=== PATIENT | male | born 1945 | race Caucasian/White ===

== ENCOUNTER 2017-06-24 13:25 | Emergency (ER) | payer MEDICARE ==
--- NOTE | 2017-06-24 14:56 | RAD ---
INDICATION: LEFT wrist pain post fall. COMPARISON: No relevant prior exams available on the [facility] PACS for comparison. TECHNIQUE: AP, lateral, and oblique views LEFT wrist. REPORT: Bone density appears decreased throughout. Subtle cortical buckle fracture at the distal metaphysis of the radius with disproportionate dorsal impaction with resulting loss of the normal volar tilt of the distal radioarticular surface. Probable intra-articular extension without significant articular surface discontinuity. Negative for additional fracture or articular malalignment. Soft tissue swelling about the wrist and visualized hand. IMPRESSION: Mildly dorsally impacted distal radial fracture with probable intra-articular extension without significant articular surface discontinuity.
[2017-06-24 16:57] VITALS: BP 116/79
--- NOTE | 2017-06-24 17:46 | ED ---
Upper Extremity Pain - HPI Summary HPI Summary: Patient is a 72-year-old male who presents to the emergency department for a left wrist injury that occurred yesterday morning. Patient has a history of Parkinson's disease and states he was moving his a wheelchair when he lost his balance and fell, landed onto his left hand. He presents to the ER today because wrist became swollen and bruised. He denies head injury or any other complaints at this time. Symptoms are mild in severity. Using and touching left wrist makes symptoms worse. Rest makes symptoms better. Is not anticoagulated. - History of Current Complaint Chief Complaint: EDExtremityUpper Stated Complaint: LT WRIST INJURY Time Seen by Provider: 06/24/17 13:32 Hx Obtained From: Patient, Family/News Department Intern - Allergies/Home Medications Allergies/Adverse Reactions: Allergies Allergy/AdvReac Type Severity Reaction Status Date / Time codeine Allergy Rash Verified 06/24/17 13:30 PMH/Surg Hx/FS Hx/Imm Hx Previously Healthy: Yes Cardiovascular History: Reports: Hx Hypertension Neurological History: Reports: Other Neuro Impairments/Disorders - PARKINSONS DISEASE - Surgical History Surgery Procedure, Year, and Place: deep brain stimulation implant Dec 2010 Infectious Disease History: No Infectious Disease History: Denies: Traveled Outside the [place] in Last 30 Days - Social History Occupation: Retired Lives: With Family Alcohol Use: Rare Substance Use Type: Reports: None Smoking Status (MU): Former Smoker Type: Pipe Have You Smoked in the Last Year: No Review of Systems Positive: Other - left wrist pain and bruising All Other Systems Reviewed And Are Negative: Yes Physical Exam Triage Information Reviewed: Yes Vital Signs On Initial Exam: Initial Vitals Temp Pulse Resp BP Pulse Ox 98.2 F 87 19 119/87 96 06/24/17 13:26 06/24/17 13:26 06/24/17 13:26 06/24/17 13:26 06/24/17 13:26 Vital Signs Reviewed: Yes Appearance: Positive: Well-Appearing - Patient sitting on bed in no acute distress. present. Skin: Positive: Warm, Dry Musculoskeletal: Positive: Other - Ecchymosis and mild edema noted to the left distal forearm and hand. Good palpable pedal pulse. Brisk capillary refill. No wounds. No proximal elbow or shoulder pain. Neurological: Positive: Normal, CN Intact II-III Psychiatric: Positive: Normal Procedures - Splinting Hand-Made Type: orthoglass Splint: sugar-tong Pre-Proc Neuro Vasc Exam: normal Post-Proc Neuro Vasc Exam: normal Diagnostics - Vital Signs Vital Signs Temp Pulse Resp BP Pulse Ox 06/24/17 16:56 98.0 F 86 14 116/79 92 06/24/17 16:07 86 18 120/85 92 06/24/17 16:00 84 18 95 06/24/17 15:56 86 19 115/88 94 06/24/17 15:26 107 18 111/84 97 06/24/17 15:00 83 16 97 06/24/17 14:26 83 17 101/82 94 06/24/17 14:25 76 24 95 06/24/17 13:56 87 19 116/87 97 06/24/17 13:26 98.2 F 87 19 119/87 96 - Laboratory Lab Statement: Any lab studies that have been ordered have been reviewed, and results considered in the medical decision making process. Course/Dx - Course Course Of Treatment: Patient presenting for an isolated left wrist injury. X- rays show a mildly impacted intra-articular distal radial fracture, reading per radiology. Wrist was splinted. Patient's is comfortable taking him home and caring for him at this time. They're to call the orthopedic clinic on Monday for an appointment. Keep splint in place. Tylenol for pain as directed. Ice and elevate. To return to the ER symptoms change or worsen. - Diagnoses Differential Diagnosis/HQI/PQRI: Positive: Fracture (Closed), Hematoma, Strain, Sprain Provider Diagnoses: Wrist fracture Discharge - Sign-Out/Discharge Documenting (check all that apply): Discharge/Admit/Transfer - Discharge Plan Condition: Good Disposition: HOME Patient Education Materials: Wrist Fracture in Adults (ED) Referrals: Ruth Peralta MD [Primary Care Provider] - Giorgio Bartholomew MD [Medical Doctor] - Additional Instructions: Call Dr. Bartholomew' office on Monday to schedule an appointment Keep splint in place Ice and elevate Tylenol for pain as directed Return to ER if symptoms change or worsen - Billing Disposition and Condition Condition: GOOD Disposition: HOME
== END 2017-06-24 16:56 | disposition home or self-care (01) ==
LOC: ED 13:25
DX: S52.502A Unspecified fracture of the lower end of left radius, initial encounter for closed fracture (principal); W18.30XA Fall on same level, unspecified, initial encounter; Y93.89 Activity, other specified; Y92.9 Unspecified place or not applicable; G20 Parkinson's disease; I10 Essential (primary) hypertension; Z88.5 Allergy status to narcotic agent; Z87.891 Personal history of nicotine dependence
CPT/HCPCS: 99282

== ENCOUNTER 2018-03-01 09:31 | Emergency (ER) | payer MEDICARE ==
--- NOTE | 2018-03-01 10:23 | ED ---
Adult Trauma - HPI Summary HPI Summary: A 73 y/o male brought in by [facility] presents to [facility] with a chief complaint of being referred from his Primary Care Provider, Dr. Ruth Peralta with [facility] in [place], for a Hx of frequent falls and a most recent fall the morning of 03/01/18. Hx of Parkinson's. Dr. Peralta referred the patient to the ED for investigation of possible rehab placement. Per triage, he rates his pain as 5/10. He had an appointment with Dr. Peralta at 11:30 on 03/01/18. The patient claims that this morning he remembers standing up and trying to pull up his underwear but doesn't remember anything else around the fall. He notes that he usually uses his scooter around his house and reports needing help to walk. He c /o leg swelling. He denies fever, CP, cough or flu like symptoms. However, he does c/o constant SOB. FHx Alzheimer's. SHx cholecystectomy. The patient states that he does not want to go to rehab. He is a former smoker who quit 40 years ago. He denies a Hx of substance abuse. He admits to EtOH use rarely. Takes Sinemit 1.5 in morning. In the afternoon, evening and night takes 1. Vital signs while in room: HR 77bpm, BP 142/89, O2 Sat 95 - History of Current Complaint Chief Complaint: EDGeneral Stated Complaint: FELL Time Seen by Provider: 03/01/18 09:52 Hx Obtained From: Patient, EMS Mechanism of Injury: Fall Onset/Duration: Started Weeks Ago, Still Present Onset of Pain: Immediate, Prior to Arrival Onset Severity: Moderate Current Severity: Moderate Pain Intensity: 5 Pain Scale Used: 0-10 Numeric Aggravating Factor(s): Nothing Alleviating Factor(s): Nothing Associated Signs & Symptoms: Positive: SOB. Negative: Chest Pain, Cough, Fever - Allergy/Home Medications Allergies/Adverse Reactions: Allergies Allergy/AdvReac Type Severity Reaction Status Date / Time codeine Allergy Rash Verified 03/01/18 10:26 Home Medications: Home Medications Carbidopa/Levodopa [Carbidopa-Levodopa 25-100 Tab] 1 tab PO BEDTIME 03/01/18 [ History Confirmed 03/01/18] Carbidopa/Levodopa [Carbidopa-Levodopa 25-100 Tab] 1 tab PO QPM 03/01/18 [ History Confirmed 03/01/18] Carbidopa/Levodopa [Carbidopa-Levodopa 25-100 Tab] 1.5 tab PO DAILY 03/01/18 [ History Confirmed 03/01/18] Insulin Detemir [Levemir Flextouch] 30 unit SC DAILY 03/01/18 [History Confirmed 03/01/18] Losartan Potassium 25 mg PO DAILY 03/01/18 [History Confirmed 03/01/18] PMH/Surg Hx/FS Hx/Imm Hx Cardiovascular History: Reports: Hx Hypertension Neurological History: Reports: Other Neuro Impairments/Disorders - PARKINSONS DISEASE - Surgical History Surgery Procedure, Year, and Place: deep brain stimulation implant Dec 2010 Infectious Disease History: No Infectious Disease History: Denies: Traveled Outside the [place] in Last 30 Days - Family History Known Family History: Positive: Other - Alzheimer's - Social History Occupation: Retired Lives: With Family Alcohol Use: Rare Substance Use Type: Reports: None Smoking Status (MU): Former Smoker Type: Pipe Have You Smoked in the Last Year: No Review of Systems Negative: Fever ENT: Negative - flu-like symptoms Negative: Chest Pain Positive: Shortness Of Breath. Negative: Cough Positive: Edema - legs All Other Systems Reviewed And Are Negative: Yes Physical Exam - Summary Physical Exam Summary: Appearance: Well-appearing, moderate pain distress, well-nourished Skin: Warm, color reflects adequate perfusion, dry, fungal toenails bilaterally Head: Normal Head/Face inspection, atraumatic Eyes: Conjunctiva clear ENT: Normal inspection Neck: Supple, no nodes, no JVD Respiratory: Lungs clear, normal breath sounds, no respiratory distress Cardio: RRR, No murmur, pulses normal, brisk capillary refill Abdomen: Soft, nontender, Purple ecchymosis 3cm right lower abd, healed midline scar abdomen Bowel sounds: Present Musculoskeletal: Strength Intact/ROM intact, no calf tenderness, 2+ edema bilaterally, Brawny changes bilateral legs, redness left leg greater than right Psychological: Normal Neuro: Alert, muscle tone normal, no focal deficit, rolling tremor on right, slight slurred speech but understandable, able to lift bilateral legs against gravity without pain. Triage Information Reviewed: Yes Vital Signs On Initial Exam: Initial Vitals Temp Pulse Resp BP Pulse Ox 97.4 F 73 17 142/89 97 03/01/18 09:38 03/01/18 09:38 03/01/18 09:38 03/01/18 09:38 03/01/18 09:38 Vital Signs Reviewed: Yes - [place] Coma Scale Best Eye Response: 4 - Spontaneous Best Motor Response: 6 - Obeys Commands Best Verbal Response: 5 - Oriented Coma Scale Total: 15 Diagnostics - Vital Signs Vital Signs Temp Pulse Resp BP Pulse Ox 03/01/18 09:38 97.4 F 73 17 142/89 97 - Laboratory Result Diagrams: 03/01/18 10:23 03/01/18 10:23 Lab Statement: Any lab studies that have been ordered have been reviewed, and results considered in the medical decision making process. - Radiology CXR Radiology Interpretation Completed By: Radiologist Summary of Radiographic Findings: No evidence for intrathoracic disease. ED provider has reviewed this imaging report. - CT Brain CT Interpretation Completed By: Radiologist Summary of CT Findings: Brain stimulator leads in place. No definite intracranial mass or hemorrhage. is noted. ED provider has reviewed this imaging report. - EKG 10:39 Cardiac Rate: NL - 76 bpm EKG Rhythm: Sinus Rhythm ST Segment: Non-Specific Ectopy: None EKG Comparison: Other - not consistent with 11/08/13. Summary of EKG Findings: NSR at 76 bpm, 1st degree AV block (222), prolonged IVCT in LBBB, nl QTc, left axis (-51), not consistent with 11/08/13. Re-Evaluation - Re-Evaluation First Eval Re-Evaluation Time: 12:38 Change: Unchanged Comment: Takes Sinemit 1.5 in morning. In the afternoon, evening and night takes 1. Second Eval Re-Evaluation Time: 13:08 Change: Unchanged Comment: Per patient has fallen 2 times in 3 days. Also has prior falls in other months. Has also been falling in previous months. Brain stimulator was in [place] in 2010. Third Eval Re-Evaluation Time: 15:15 Change: Improved Comment: Pt and agreeable to discharge. Pt feels well. Bactrim DS x1 given. Pt will return home by wheelchair van. Adult Trauma Course/Dx - Course Course Of Treatment: A 73 y/o male brought in by [facility] presents to [facility] with a chief complaint of being referred from his Primary Care Provider, Dr. Ruth Peralta, for a Hx of frequent falls and a most recent fall the morning of 03/01/18. Hx of Parkinson's. The physical exam revealed 2+ edema bilaterally, brawny changes bilateral legs, redness left leg greater than right and a rolling tremor on right, slight slurred speech but understandable and that the patient is able to lift bilateral legs against gravity without pain. CXR and brain CT were negative. EKG at 10:39 showed NSR at 76 bpm. Sinemit 25/100 administered at 12:39. Case discussed with Zakiya from manager social work. The patient will be discharged with a prescription for Bactrim and strict return precautrions were given. The patient is agreeable with this plan. - Diagnoses Provider Diagnoses: Frequent falls, UTI (urinary tract infection), Parkinsons Discharge - Sign-Out/Discharge Documenting (check all that apply): Patient Departure - DC - Discharge Plan Condition: Stable Disposition: HOME Prescriptions: Sulfamethox/Trimethoprim DS* [Bactrim DS 800/160 TAB*] 1 tab PO BID #10 tab Meds/Orders/Equipment: Home Care: Skilled Needs Location: None Selected Patient Education Materials: Urinary Tract Infection in Men (ED), Fall Prevention for Older Adults (ED) Referrals: Referral Center, Primary Care Physician [Other] (Please call number with your name, phone number, special needs, request for physician and insurance to find a new primary care physician in [facility].) [facility] [Outside] (Referral made for hospital bed with railings and trapeze, bariatric rollator, and marlene.) [facility] [place] [Outside] (Referral made for senior living, physical therapy and PULMONOLOGY TECHNICIAN.) Ruth Peralta MD [Medical Doctor] - 2 Days Additional Instructions: We have helped arrange manager social work for you. You were given your first dose of Bactrim as treatment for a urinary tract infection at 3:15pm today in the ER. You may take another dose tonight before bed, and then continue this medication for 5 days as directed. You were also given one of your carbidopa/levodopa pills this afternoon. Return to the ER if you have any new or worsening symptoms. - Attestation Statements Document Initiated by Scribe: Yes Documenting Scribe: Amari Foster Provider For Whom Scribe is Documenting (Include Credential): MD Vidhi Salasibe Attestation: Amari Azevedo, scribed for Dr. Mai Dawson MD on 03/01/18 at 1532. Consult Consult: At 13:38 discussed case with Zakiya from manager social work, who will come to the ED. At 15:00 discussed case with Zakiya from manager social work in the ED. We filled out the proper paperwork for the patient to be discharged and continue to work with manager social work.
[2018-03-01 10:30] LABS: ABS Basophils 0 10^3/ul (0-0.2); ABS Eosinophils 0.1 10^3/ul (0-0.6); ABS Lymphocytes 1.1 10^3/ul (1.0-4.8); ABS Monocytes 0.4 10^3/ul (0-0.8); ABS Neutrophils 3.5 10^3/ul (1.5-7.7); ABS Nucleated RBC 0 10^3/ul; Eosinophil % 2.8 %; Hematocrit 41 % (42-52); Hemoglobin 13.7 g/dl (14.0-18.0); Lymphocyte % 21.2 %; Mean Corpuscular HGB Conc 34 g/dl (31-36); Mean Corpuscular Hemoglobin 31 pg (27-31); Mean Corpuscular Volume 91 fL (80-94); Mean Platelet Volume 7.5 fL (7.4-10.4); Nucleated Red Blood Cells % 0; Platelet Count 139 10^3/ul (150-450); Red Blood Count 4.49 10^6/ul (4.00-5.40); Red Cell Distribution Width 15 % (10.5-15); White Blood Count 5.2 10^3/ul (3.5-10.8)
[2018-03-01 10:48] LABS: Activated Partial Thrombo Time 34.3 seconds (26.0-36.3)
[2018-03-01 10:56] LABS: Alcohol < 10 mg/dL (<10)
[2018-03-01 10:59] LABS: ALT < 3 U/L (7-52); AST 8 U/L (13-39); Albumin 3.6 g/dL (3.2-5.2); Albumin/Globulin Ratio 1.1 (1-3); Alkaline Phosphatase 95 U/L (34-104); Anion Gap 4 mmol/L (2-11); BUN/Creatinine Ratio 16.7 (8-20); Blood Urea Nitrogen 20 mg/dL (6-24); CO2 Carbon Dioxide 29 mmol/L (22-32); Chloride 107 mmol/L (101-111); EGFR Non-African American 59.7 (>60); Globulin 3.4 g/dL (2-4); Glucose 102 mg/dL (70-100); Potassium 3.7 mmol/L (3.5-5.0); Sodium 140 mmol/L (135-145)
[2018-03-01 12:30] LABS: Urine Appearance Turbid; Urine Bacteria 3+ (Absent); Urine Bilirubin Negative (Negative); Urine Blood 1+ (Negative); Urine Color Yellow; Urine Glucose Negative (Negative); Urine Ketones Trace (Negative); Urine Nitrite Positive (Negative); Urine Protein 1+(30 mg/dL) (Negative); Urine Red Blood Cell 2+(6-10/hpf) (Absent); Urine Specific Gravity 1.016 (1.010-1.030); Urine Urobilinogen Negative (Negative); Urine White Blood Cell 3+(>20/hpf) (Absent)
[2018-03-01] MEDS ORDERED: Carbidopa/Levodop 25/100 MG TAB(*) PO ONE (12:39)
[2018-03-01] MEDS ORDERED: Sulfamethox/Trimethoprim DS 800/160* TAB PO ONE (15:08)
[2018-03-01 15:38] VITALS: BP 123/83
--- NOTE | 2018-03-03 05:43 | PN ---
Progress Note - Progress Note Date of Service: 03/01/18 Note: Urine culture preliminary grew Escherichia coli 100,000 Patient was placed on Bactrim prior to discharge We will await sensitivities at this time
--- NOTE | 2018-03-04 06:09 | PN ---
Progress Note - Progress Note Date of Service: 03/01/18 Note: Patient was placed on Bactrim prior to discharge Urine culture final grew E. Coli Bactrim is sensitive to organism Nothing further is required
== END 2018-03-01 15:38 | disposition home or self-care (01) ==
LOC: ED 09:31
DX: N39.0 Urinary tract infection, site not specified (principal); G20 Parkinson's disease; Z91.81 History of falling; R06.02 Shortness of breath; Z87.891 Personal history of nicotine dependence; R60.9 Edema, unspecified
CPT/HCPCS: 36415; 70450; 71045; 80053; 80320; 81003; 81015; 83605; 84484; 85025; 85610; 85730; 87077; 87086; 87186; 93005; 99284; A9270-GY; G0480